=== PATIENT | female | born 1950 | race Caucasian/White ===

== ENCOUNTER 2017-11-15 12:42 | Day surgery (SDC) | payer BC, SELFPAY ==
--- NOTE | 2017-11-15 07:32 | PM.PREOP ---
Pre-operative Note Interval Note Pre-op Check: Yes History & Physical Reviewed by Physician Changes: No
[2017-11-15] MEDS: PROPARACAINE 0.5% OPHTH SOL 2 DROPS EYE-OP ×2 (13:10→13:53)
[2017-11-15] MEDS: CATARACT EYE COMPOUND (10 DROPS/SYRINGE) 3 DROPS EYE-OP (13:20)
[2017-11-15 13:21] VITALS: BP 120/75; PULSE 68; RESP 16; TEMP 36.8; O2SAT 97; BMI 23.3
--- NOTE | 2017-11-15 13:43 | SUR.OPER ---
Supine on eye stretcher, head on extension cradle secured with tape. Arms tucked at sides with blanket. Pillow under knees.
[2017-11-15] MEDS: PHENYLEPHRINE/LIDOCAINE VIAL (OR) 0.2 ML EYE-OP (13:51)
[2017-11-15] MEDS: MOXIFLOXACIN OPHTH DROPS 3 ML BOTTLE 2 DROPS INJ (13:51)
[2017-11-15] MEDS: TRIAMCINOLONE 50 MG/5 ML VIAL INJ (13:52)
[2017-11-15] MEDS: CHONDROIDTIN/SOD HYALURONATE 1.05 ML SYRINGE INTRAOCULA (13:52)
[2017-11-15] MEDS: BALANCED SALT IRRIG SOLN NO.2 15 ML IRRIG.SOLN IRR (13:52)
[2017-11-15] MEDS: HYALURONATE SODIUM 10 MG/ML SYRINGE INJ (13:53)
[2017-11-15] MEDS: BALANCED SALT IRRIG SOLN NO.2 500 ML, EPINEPHrine 1 MG IRR (13:54)
[2017-11-15] MEDS: CARBACHOL 1.5 ML VIAL INJ (13:55)
[2017-11-15] MEDS: ERYTHROMYCIN OPHTH 1 GM OINT 1 APPLIC EYE-RIGHT (13:56)
[2017-11-15] MEDS: LIDOCAINE 2% 4 ML, BUPIVACAINE 0.5% (PF) 4 ML, HYALURONIDASE 150 UNIT INJ (13:57)
[2017-11-15] MEDS: LIDOCAINE 1% W/EPI INJ 20 ML INJ (13:57)
[2017-11-15 14:22] VITALS: BP 113/60; PULSE 54; RESP 15; TEMP 36.3; O2SAT 95
[2017-11-15 14:37] VITALS: BP 103/65; PULSE 55; RESP 16; TEMP 36.7; O2SAT 96
[2017-11-15 14:50] VITALS: BP 102/66; PULSE 57; RESP 15; TEMP 36.6; O2SAT 97
--- NOTE | 2017-11-15 15:17 | P.OP_ITS ---
Operative Date/Time/Diagnoses Date of procedure: 11/15/17 Time of procedure: 13:45 Procedure & Clinicians Procedure: Date of service:11/15/2017 Preoperative diagnoses: 1. Right Complex cataract surgery with adnvance cortical cataract lucas to chronic steroid use. 2. Astigmatism which she elects to correct with a toric IOL. 3. Chronic prednisonse use for Asthma. 4. Atrial flutter. 5. HTN. Postoperative diagnoses: 1. Cataract removed with phacoemulsification and posterior chamber toric intraocular lens implant. Procedure: Phacoemulsification with posterior chamber intraocular lens implant Surgeon: Ledy Russell MD Complications:none Specimen: None Implant:[id number] Blood loss: None Anesthesia: Retrobulbar with monitored standby Anesthesiologist: Shekhar Lopez M.D. Description of procedure: Patient is a female year old with decreased vision due to cataract which is affecting activities of daily living. She wants surgery to improve vision. She was taken to the operating room and Indelible ink prince were placed at the 90 and 180 degree meridian. She was then given IV sedation. A retrobulbar block insert consisting of 6 cc of 2% xylocaine without epinephrine mixed half and half with 0.5% Marcaine with 1 cc of hyaluronidase added is placed between the medial and lateral 1/3 of the inferior orbital rim. Lid akinesia is obtain with 1% xylocaine with epinephrine infiltrated along the lid margin. The eye is manually massaged for 30 sec, prepped using Betadine solution, and draped in the usual sterile fashion. Temporal approach was made, a 1 mm side-port incision was made at the 7:30 position. Phenylephrine 1.5% mixed with 1% xylocaine 0.2 cc was placed into the anterior chamber. Viscoat followed by Radha was then placed. A 2.6 mm clear incision with a 2.6 mm blade was placed at the 170 degree meridian. A 360 degree capsulorrhexis style capsulotomy was then performed with a cystitome needle on a Healon. Hydrodelineation and hydrodissection were performed. The phacoemulsification unit is introduced, and sculpting notice used to groove the central lens. It is then removed in chopping mode. Epi nucleus is removed with epinuclear mode and irrigation aspiration was used to remove the peripheral cortex. The posterior capsule is polished. The intraocular lens is selected, inspected, power confirmed, and placed in the posterior chamber at the 28 degree meridian. The pupil was not constricted. The wound was stromally hydrated and tested for leaks, there was none [] left sutureless. Vigamox 0.1 cc was placed into the anterior chamber. Kenalog 0.2 cc was placed in the superior subconjunctival space. A drop of antibiotic and was placed and the eye was patched and shielded. The patient was stable and returned to the recovery room in excellent condition. Dictated by: Ledy Russell MD Copy to: [facility] Same procedure as scheduled: Yes
== END 2017-11-15 15:01 | disposition home or self-care (01) ==
PROVIDERS: Visit Provider Ophthalmology
PROC: (CPT 66982; principal; 2017-11-15 13:45)
DX: H25.011 Cortical age-related cataract, right eye (principal); H52.201 Unspecified astigmatism, right eye; J45.909 Unspecified asthma, uncomplicated; I48.92 Unspecified atrial flutter; I10 Essential (primary) hypertension; Z79.51 Long term (current) use of inhaled steroids
CPT/HCPCS: 66982; J0171; J2704; J3301; J3470; V2787

== ENCOUNTER 2017-11-29 12:42 | Day surgery (SDC) | payer BC, SELFPAY ==
--- NOTE | 2017-11-24 16:59 | PM.PREOP ---
Pre-operative Note Interval Note Pre-op Check: Yes History & Physical Reviewed by Physician Changes: No
[2017-11-29 13:29] VITALS: BP 133/66; PULSE 70; RESP 16; TEMP 36.6; O2SAT 97; BMI 51.5
[2017-11-29] MEDS: PROPARACAINE 0.5% OPHTH SOL 2 DROPS EYE-OP (13:30)
[2017-11-29] MEDS: CATARACT EYE COMPOUND (10 DROPS/SYRINGE) 3 DROPS EYE-OP (13:33)
[2017-11-29] MEDS: BALANCED SALT IRRIG SOLN NO.2 15 ML IRRIG.SOLN IRR (14:33)
[2017-11-29] MEDS: CHONDROIDTIN/SOD HYALURONATE 1.05 ML SYRINGE INTRAOCULA (14:33)
[2017-11-29] MEDS: ERYTHROMYCIN OPHTH 1 GM OINT 1 APPLIC EYE-LEFT (14:34)
[2017-11-29] MEDS: LIDOCAINE 1% W/EPI INJ 20 ML INJ (14:35)
[2017-11-29] MEDS: HYALURONATE SODIUM 10 MG/ML SYRINGE INJ (14:35)
[2017-11-29] MEDS: MOXIFLOXACIN OPHTH DROPS 3 ML BOTTLE 2 DROPS INJ (14:36)
[2017-11-29] MEDS: PHENYLEPHRINE/LIDOCAINE VIAL (OR) 0.2 ML EYE-OP (14:36)
[2017-11-29] MEDS: TRYPAN BLUE 0.5 ML SYRINGE INJ (14:37)
[2017-11-29] MEDS: TRIAMCINOLONE 50 MG/5 ML VIAL INJ (14:37)
[2017-11-29] MEDS: BALANCED SALT IRRIG SOLN NO.2 500 ML, EPINEPHrine 1 MG IRR (14:39)
[2017-11-29] MEDS: LIDOCAINE 2% 4 ML, BUPIVACAINE 0.5% (PF) 4 ML, HYALURONIDASE 150 UNIT INJ (14:40)
[2017-11-29 15:10] VITALS: BP 130/65; PULSE 56; RESP 16; TEMP 36.3; O2SAT 94
--- NOTE | 2017-11-29 15:51 | P.OP_ITS ---
Operative Date/Time/Diagnoses Date of procedure: 11/29/17 Time of procedure: 13:45 Procedure & Clinicians Procedure: Date of service: November 29, 2017 Preoperative diagnoses: 1. Complex nuclear sclerotic and cortical cataract with need for capsulardye. Postoperative diagnoses: 1. Cataract Complex nuclear and cortical cataract with need for capsular dye. 2. Astigmatism which she elects to correct with a toric intra-ocular lens. Procedure: Complex Phacoemulsification with posterior chamber toric intraocular lens implant and use of capsular dye. Surgeon: Ledy Russell MD Complications:none Specimen: None Implant:[id number] Raymond 165 Blood loss: None Anesthesia: Retrobulbar with monitored standby Anesthesiologist: Lance Brown M.D. Description of procedure: Patient is a 66 year old female with decreased vision due to cataract which is affecting activities of daily living. She wants surgery to improve vision. She has multiple allergies to antibiotics She has an unusual dense tigroid cortical cataract with no red reflex and will need capsular dye. She was taken to the operating room and given IV sedation. A retrobulbar block consisting of 6 cc of 2% xylocaine without epinephrine mixed half and half with 0.5% Marcaine with 1 cc of hyaluronidase added is placed between the medial and lateral 1/3 of the inferior orbital rim. Lid akinesia is obtain with 1% xylocaine with epinephrine infiltrated along the lid margin. The eye is manually massaged for 30 sec, prepped using Betadine solution, and draped in the usual sterile fashion. Temporal approach was made, a 1 mm side-port incision was made at the 12 oclock meridian. Phenylephrine 1.5% mixed with 1% xylocaine 0.2 cc was placed into the anterior chamber. An air bubble was placed followed by Visudyne capsular dye.Viscoat followed by Healon was then placed. A 2.6 mm clear incision with a 2.6 mm blade was placed at the 3 oclock meridian. A 360 degree capsulorrhexis style capsulotomy was then performed with a cystitome needle on a Healon. Hydrodelineation and hydrodissection were performed. The phacoemulsification unit is introduced, and sculpting notice used to groove the central lens. A mild floppy iris did present was managed with viscoelastic.It is then removed in chopping mode. Epi nucleus is removed with epinuclear mode and irrigation aspiration was used to remove the peripheral cortex. The posterior capsule is polished. The intraocular lens is selected, inspected, power confirmed, and placed in the posterior chamber at the 165 degree meridian confirmed by corneal markers. The pupil was not constricted. The wound was stromally hydrated and tested for leaks, there was none and was left sutureless. Vigamox 0.1 cc was placed into the anterior chamber. Kenalog 0.2 cc was placed in the superior subconjunctival space. Erythromycin ophthalmic ointment was placed into the eye was patched and shielded. Other antibiotics were avoided due to allergies.The patient was stable and returned to the recovery room in excellent condition. Dictated by: Ledy Russell MD Copy to: [facility] Same procedure as scheduled: Yes
== END 2017-11-29 15:15 | disposition home or self-care (01) ==
LOC: OR 12:44
PROVIDERS: PCP Specialist; Visit Provider Ophthalmology
PROC: (CPT 66982; principal; 2017-11-29 13:45)
DX: H25.12 Age-related nuclear cataract, left eye (principal); R01.1 Cardiac murmur, unspecified; I48.92 Unspecified atrial flutter; I27.20 Pulmonary hypertension, unspecified; J45.909 Unspecified asthma, uncomplicated; H52.202 Unspecified astigmatism, left eye; H21.81 Floppy iris syndrome
CPT/HCPCS: 66982; J0171; J2250; J2704; J3010; J3301; J3470; V2787